=== PATIENT | male | born 1945 | race American Indian/Alaskan Native ===

== ENCOUNTER 2020-09-27 06:09 | Day surgery (SDC) | payer MEDICARE, OTHER ==
--- NOTE | 2020-09-25 10:49 | Anesthesia Consultation ---
Anesthesia Consult and Med Hx Date of service: 09/27/20 - Airway Anesthetic Teeth Evaluation: Chipped ROM Head & Neck: Inadequate Mental/Hyoid Distance: Adequate Mallampati Class: Class IV Intubation Access Assessment: Possibly Difficult - Pre-Operative Health Status ASA Pre-Surgery Classification: ASA3 Proposed Anesthetic Plan: General - Pulmonary Hx Smoking: Yes (STOPPED X 30 YRS) Hx Respiratory Symptoms: No (+2FS) Hx Sleep Apnea: Yes (DX SLEEP APNEA WITH CPAP USE) - Cardiovascular System Hx Hypertension: Yes (X 30 YRS) Hx Coronary Artery Disease: Yes (ECHO [id number] Severe septal LV hypertrophy. EF .87. LVOT obstruction/HCM) Hx Heart Attack/AMI: No (Cath [id number] EF .55 LVH. No significant CAD) Hx Cardia Arrhythmia: Yes (Holter 2018 and 30-day EVM no significant dysrhythmias) - Central Nervous System Hx Psychiatric Problems: No - Gastrointestinal Hx Gastroesophageal Reflux Disease: No - Endocrine Hx Renal Disease: Yes (CKD) Hx Non-Insulin Dependent Diabetes: Yes Hx Thyroid Disease: No - Hematic Hx Anemia: No Hx Sickle Cell Disease: No - Other Systems Hx Obesity: Yes
[~2020-09-27 06:09] MED LIST: LACTATED RINGERS 1,000 ML IV SCH; ceFAZolin/STERILE WATER 2 GM/20 ML SYRINGE IV NR
[2020-09-27] MEDS ORDERED: MIDAZOLAM 2 MG/2 ML INJ IV ONE (06:35)
--- NOTE | 2020-09-27 06:50 | Anesthesia Day of Surgery ---
Anesthesia Day of Surgery - Day of Surgery Patient Examined: Yes Patient H&P Reviewed: Yes Patient is NPO: Yes Beta Blockers: Yes (09/27/20)
[2020-09-27] MEDS ORDERED: propofoL 200 MG/20 ML VIAL IV ONE (07:25)
[2020-09-27] MEDS ORDERED: ONDANSETRON 4 MG/2 ML INJ ONE (07:25)
[2020-09-27] MEDS ORDERED: fentaNYL 100 MCG/2 ML INJ ONE ×2 (07:25→09:59)
[2020-09-27] MEDS ORDERED: LIDOCAINE MPF (2%) 20 MG/1 ML VIAL 5 ML ONE (07:25)
[2020-09-27] MEDS ORDERED: GLYCOPYRROLATE 0.4 MG/2 ML INJ ONE (08:00)
[2020-09-27] MEDS ORDERED: WATER FOR IRRIG STERILE 1,500 ML BOTTLE IR ONE ×2 (08:04)
[2020-09-27] MEDS ORDERED: WATER FOR IRRIG STERILE 2000 ML IR ONE (08:04)
--- NOTE | 2020-09-27 08:48 | Short Stay Summary ---
Short Stay Documentation Date of service: 09/27/20 - History H&P: obtained from office - Allergies and Medications Current Medications: Allergies No Known Allergies Allergy (Verified 09/21/20 10:38) Home Medications Medication Instructions Recorded Confirmed Last Taken Type Amlodipine Besylate/Valsartan 1 each PO DAILY 09/25/20 09/25/20 09/27/20 05:30 History [Amlodipine-Valsartan 10-320 mg] Insulin Glargine,Hum.rec.anlog 30 unit SQ QHS 09/25/20 09/25/20 09/26/20 History [Toujeo Solostar] Insulin Lispro [Humalog 100 25 units SQ BID 09/25/20 09/25/20 09/26/20 History UNITS/ML Kwikpen] Insulin Lispro [Humalog 100 30 units SQ QHS 09/25/20 09/25/20 09/26/20 History UNITS/ML Kwikpen] Metformin HCl [Metformin HCl ER] 500 mg PO BID 09/25/20 09/25/20 09/26/20 History Metoprolol [Lopressor] 100 mg PO DAILY 09/25/20 09/25/20 09/27/20 05:30 History Olmesartan (Nf) [Benicar (Nf)] 40 mg PO QDAY 09/25/20 09/25/20 09/26/20 History Pregabalin [Lyrica] 50 mg PO DAILY 09/25/20 09/25/20 09/26/20 History Simvastatin 80 mg PO QHS 09/25/20 09/25/20 09/26/20 History cloNIDine [Catapres] 0.2 mg PO BID 09/25/20 09/25/20 09/27/20 05:30 History Active Medications Cefazolin Sodium (Cefazolin/Sterile Water 2 Gm/20 Ml Syringe) 2 gm IV PREOP NR Stop: 09/27/20 20:00 Lactated Ringer's (Lactated Ringers) 1,000 mls @ 125 mls/hr IV DIRECT JASPREET Last Admin: 09/27/20 06:40 Dose: 125 mls/hr Documented by: - Brief post op/procedure progress note Date of procedure: 09/27/20 Pre-op diagnosis: bladder tumor Post-op diagnosis: same Procedure: cysto, turbt, tur bx of prostate Anesthesia: GETA Surgeon: YOU PHAN Estimated blood loss: minimal Pathology: list (bladder tumor, prostate bx) Specimen disposition: to lab Condition: stable - Hospital course Hospital course: bactrim, norco,pyridium on chart - Disposition Condition at discharge: Stable Disposition: DC-01 TO HOME OR SELFCARE Short Stay Discharge Plan Follow up with: PRIMARY CARE, [Primary Care Provider] - 7 Days
[2020-09-27] MEDS ORDERED: MANNITOL/SORBITOL SOLUTION 3,000 ML IRRIG.SOLN IR ONE (09:03)
[2020-09-27] MEDS ORDERED: hydrALAZINE 20 MG/1 ML INJ IV ONE ×2 (10:00→11:00)
--- NOTE | 2020-09-27 10:15 | Fluoroscopy Report ---
INTRAOPERATIVE FLUOROSCOPY: RETROGRADE UROGRAPHY INDICATION: BLADDER CANCER. TECHNIQUE: Intraoperative spot images were obtained during the procedure. FINDINGS: Left retrograde urography demonstrates expected opacification of the ureter and renal collecting syst em with probable air bubbles seen at the left UPJ. Please see the procedure report for further detail s. Fluoroscopy Time: 0.1 minutes. Fluoroscopy Images: 3. Signer Name: Arnol Pierre MD Signed: 09/27/2020 10:10 AM Workstation Name: [id number]
--- NOTE | 2020-09-27 10:41 | Post Anesthesia Evaluation ---
- Post Anesthesia Evaluation Patient Participated: Yes Airway Patent: Yes Stable Respiratory Function: Yes Nausea/Vomiting: No Temp > 96.8F: Yes Pain Manageable: Yes Adequeate Hydration: Yes Anesthesia Complications: No Block Receding Appropriately: Not Applicable Patient on Ventilator: No
[2020-09-27] MEDS ORDERED: fentaNYL 100 MCG/2 ML INJ IV ONE (11:00)
[2020-09-27 12:15] VITALS: BP 174/73
--- NOTE | 2020-10-05 10:52 | Operative Report ---
PREOPERATIVE DIAGNOSIS: Bladder tumor. POSTOPERATIVE DIAGNOSIS: Bladder tumor. PROCEDURE: Cystoscopy, transurethral resection of moderate bladder tumor, TUR biopsy of prostate. SURGEON: Harley Ye MD ANESTHESIA: General. ESTIMATED BLOOD LOSS: Minimal. FLUIDS: Crystalloid. COMPLICATIONS: No complications. INDICATIONS: This patient is a 74-year-old gentleman, presented to the office with an episode of gross hematuria. CT of abdomen and pelvis revealed a thickened bladder wall with a nodular area at the base. Office cystoscopy revealed a bladder tumor on the right side. He presents now for endoscopic evaluation. DESCRIPTION OF PROCEDURE: The patient was taken to the operative suite, placed in a supine position. After adequate general anesthesia, placed in a dorsal lithotomy position, prepped and draped in a sterile fashion. Pancystourethroscopy was performed with a 22-Welsh Storz cystoscope, no urethral abnormalities. His prostate displayed some vslj-je-kerkisib trilobar obstruction, obvious tumor on the right side, making it difficult to visualize the right ureteral orifice. Left retrograde pyelogram was obtained with an 8-Welsh [place] catheter and 8 mL of contrast. No filling defects or obstruction. No other tumors could be appreciated. The tumor on the right was papillary in nature. Next, using a 24-Welsh resectoscope and loop with the cutting and coag on 120 and 60, transurethral resection of the bladder tumor was performed, again could not visualize the ureteral orifice. A TUR biopsy of the lateral lobe of the prostate was performed bilaterally. Adequate hemostasis was achieved with the Bugbee. A Guajardo catheter was left indwelling. Rectal exam was benign. The patient was extubated and taken to recovery room. He will go home on Ultram and Bactrim and follow up in the office. JOB# [id number] Rosalind/SHERRI
== END 2020-09-27 06:10 | disposition home or self-care (01) ==
LOC: OR 06:09
PROVIDERS: ATTEND Urology
DX: C67.2 Malignant neoplasm of lateral wall of bladder (principal); C61 Malignant neoplasm of prostate; N32.89 Other specified disorders of bladder; N40.0 Benign prostatic hyperplasia without lower urinary tract symptoms; I42.9 Cardiomyopathy, unspecified; I25.10 Atherosclerotic heart disease of native coronary artery without angina pectoris; E78.00 Pure hypercholesterolemia, unspecified; G47.30 Sleep apnea, unspecified; E66.9 Obesity, unspecified; I12.9 Hypertensive chronic kidney disease with stage 1 through stage 4 chronic kidney disease, or unspecified chronic kidney disease; N18.9 Chronic kidney disease, unspecified; E11.22 Type 2 diabetes mellitus with diabetic chronic kidney disease; Z86.19 Personal history of other infectious and parasitic diseases; Z79.899 Other long term (current) drug therapy; Z79.4 Long term (current) use of insulin; Z87.891 Personal history of nicotine dependence; Z98.41 Cataract extraction status, right eye; Z98.42 Cataract extraction status, left eye; Z68.33 Body mass index [BMI] 33.0-33.9, adult
CPT/HCPCS: 52235; 55700; 74420; 82962; 88305; 88307; 88341; 88342; A4217; J0360; J0690; J2250; J2405; J2704; J3010; J7120; Q9967; U0003

== ENCOUNTER 2021-03-14 08:04 | Day surgery (SDC) | payer MEDICARE, OTHER ==
[2021-03-08 11:12] LABS: Hemoglobin 12.2 gm/dl (11.8-15.2); Mean Corpuscular HGB Conc 35 % (32-34); Mean Corpuscular Volume 91 fl (84-94); Platelet Count 157 K/mm3 (140-440); Red Blood Count 3.85 M/mm3 (3.65-5.03)
[2021-03-08 11:24] LABS: Albumin 3.6 g/dL (3.9-5); Calcium 8.8 mg/dL (8.4-10.2)
[~2021-03-14 08:04] MED LIST changes: +IOHEXOL 300 MG/ML 50ML IV ONE; -LACTATED RINGERS 1,000 ML IV SCH; +WATER FOR IRRIG STERILE 1,500 ML BOTTLE IR ONE; -ceFAZolin/STERILE WATER 2 GM/20 ML SYRINGE IV NR
--- NOTE | 2021-03-14 09:36 | Anesthesia Consultation ---
Anesthesia Consult and Med Hx Date of service: 03/14/21 - Airway Anesthetic Teeth Evaluation: Poor ROM Head & Neck: Adequate Mental/Hyoid Distance: Adequate Mallampati Class: Class II Intubation Access Assessment: Good - Pulmonary Exam CTA: Yes - Cardiac Exam Cardiac Exam: RRR - Pre-Operative Health Status ASA Pre-Surgery Classification: ASA3 Proposed Anesthetic Plan: General - Pulmonary Hx Smoking: Yes (STOPPED X 30 YRS) Hx Respiratory Symptoms: No (+2FS) Hx Sleep Apnea: Yes (DX SLEEP APNEA WITH CPAP USE) - Cardiovascular System Hx Hypertension: Yes (X 30 YRS) Hx Coronary Artery Disease: Yes (ECHO [id number] Severe septal LV hypertrophy. EF .87. LVOT obstruction/HCM) Hx Heart Attack/AMI: No (Cath [id number] EF .55 LVH. No significant CAD) Hx Cardia Arrhythmia: Yes (Holter 2018 and 30-day EVM no significant dysrhythmias) - Central Nervous System Hx Psychiatric Problems: No - Gastrointestinal Hx Gastroesophageal Reflux Disease: No - Endocrine Hx Renal Disease: Yes (CKD) Hx Non-Insulin Dependent Diabetes: Yes Hx Thyroid Disease: No - Hematic Hx Anemia: No Hx Sickle Cell Disease: No - Other Systems Hx Obesity: Yes
--- NOTE | 2021-03-14 09:37 | Anesthesia Day of Surgery ---
Anesthesia Day of Surgery - Day of Surgery Patient Examined: Yes Patient H&P Reviewed: Yes Patient is NPO: Yes Beta Blockers: Yes
[2021-03-14] MEDS ORDERED: ONDANSETRON 4 MG/2 ML INJ IV PRN (09:47)
[2021-03-14] MEDS ORDERED: HYDROmorphone 1 MG/1 ML INJ IV PRN ×2 (09:47→10:00)
[2021-03-14] MEDS ORDERED: LACTATED RINGERS 1,000 ML IV SCH (10:00)
[2021-03-14] MEDS ORDERED: MIDAZOLAM 2 MG/2 ML INJ IV NR (10:00)
[2021-03-14] MEDS ORDERED: ONDANSETRON 4 MG/2 ML INJ ONE (10:21)
[2021-03-14] MEDS ORDERED: LIDOCAINE MPF (2%) 20 MG/1 ML VIAL 5 ML ONE (10:21)
[2021-03-14] MEDS ORDERED: fentaNYL 100 MCG/2 ML INJ ONE (10:22)
[2021-03-14] MEDS ORDERED: propofoL 200 MG/20 ML VIAL IV ONE (10:22)
[2021-03-14] MEDS ORDERED: ceFAZolin/STERILE WATER 2 GM/20 ML SYRINGE IV NR (11:00)
[2021-03-14] MEDS ORDERED: WATER FOR IRRIG STERILE 1,500 ML BOTTLE IR ONE (11:10)
[2021-03-14] MEDS ORDERED: IOHEXOL 300 MG/ML 50ML IV ONE (11:10)
[2021-03-14] MEDS ORDERED: WATER FOR IRRIG STERILE 2000 ML IR ONE (11:10)
--- NOTE | 2021-03-14 11:34 | Short Stay Summary ---
Short Stay Documentation Date of service: 03/14/21 - History H&P: obtained from office - Allergies and Medications Current Medications: Allergies No Known Allergies Allergy (Verified 09/21/20 10:38) Home Medications Medication Instructions Recorded Confirmed Last Taken Type Amlodipine Besylate/Valsartan 1 each PO DAILY 09/25/20 03/14/21 03/13/21 09:00 History [Amlodipine-Valsartan 10-320 mg] Insulin Glargine,Hum.rec.anlog 60 unit SQ QHS 09/25/20 03/14/21 03/13/21 21:00 History [[place] Solostar] Insulin Lispro [Humalog 100 25 units SQ BID 09/25/20 03/14/21 03/13/21 21:00 History UNITS/ML Kwikpen] Metformin HCl [Metformin HCl ER] 500 mg PO BID 09/25/20 03/14/21 03/13/21 21:00 History Metoprolol [Lopressor] 100 mg PO DAILY 09/25/20 03/14/21 03/14/21 05:00 History Pregabalin [Lyrica] 50 mg PO DAILY 09/25/20 03/14/21 03/13/21 21:00 History Simvastatin 80 mg PO QHS 09/25/20 03/14/21 03/13/21 21:00 History Atenolol/Chlorthalidone [Tenoretic 1 tab PO QDAY 03/08/21 03/14/21 03/13/21 09:00 History 50-25] Doxazosin [Cardura] 1 mg PO QHS 03/08/21 03/14/21 03/13/21 21:00 History Memantine Xr [Namenda Xr] 5 mg PO BID 03/08/21 03/14/21 03/13/21 17:00 History cloNIDine-TTS PATCH [Catapres-Tts 1 patch TD Q7D 03/08/21 03/14/21 03/12/21 09:00 History 0.1MG Patch] hydrALAZINE [Apresoline TAB] 100 mg PO BID 03/08/21 03/14/21 03/14/21 05:00 History Active Medications Cefazolin Sodium (Cefazolin/Sterile Water 2 Gm/20 Ml Syringe) 2 gm IV PREOP NR Stop: 03/14/21 15:00 Hydromorphone HCl (Hydromorphone 1 Mg/1 Ml Inj) 0.25 mg IV Q10MIN PRN PRN Reason: Pain, Moderate (4-6) Stop: 03/14/21 23:00 Hydromorphone HCl (Hydromorphone 1 Mg/1 Ml Inj) 0.5 mg IV Q10MIN PRN PRN Reason: Pain , Severe (7-10) Stop: 03/14/21 23:00 Lactated Ringer's (Lactated Ringers) 1,000 mls @ 100 mls/hr IV DIRECT JASPREET Last Admin: 03/14/21 10:35 Dose: 100 mls/hr Documented by: Midazolam HCl (Midazolam 2 Mg/2 Ml Inj) 2 mg IV PREOP NR Stop: 03/14/21 23:59 Ondansetron HCl (Ondansetron 4 Mg/2 Ml Inj) 4 mg IV ONCE PRN PRN Reason: Nausea And Vomiting Stop: 03/14/21 13:00 - Brief post op/procedure progress note Date of procedure: 03/14/21 Pre-op diagnosis: bladder lesion, hx fo bladder tumor Post-op diagnosis: same Procedure: cysto,left rpg, bx bladder x 3----trigone, lateral wall, posteriot wall (all right) Surgeon: YOU PHAN Estimated blood loss: minimal Pathology: list (bladder lesions) - Hospital course Hospital course: bactrim & ultram on chart - Disposition Condition at discharge: Stable Disposition: DC-01 TO HOME OR SELFCARE Short Stay Discharge Plan Follow up with: PRIMARY CARE, [Primary Care Provider] - 7 Days
--- NOTE | 2021-03-14 12:58 | Fluoroscopy Report ---
INTRAOPERATIVE FLUOROSCOPY: RETROGRADE UROGRAPHY INDICATION / CLINICAL INFORMATION: MALIGNANT NEOPLASM OF BLADDER WALL. TECHNIQUE: Intraoperative spot images were obtained during the procedure. FINDINGS: Images show retrograde urography. 12 cc Omnipaque 300 utilized. See operative/procedure note by performing physician for full details. Fluoroscopy Time: 8 seconds. Fluoroscopy Images: 6. Signer Name: Tom Richey MD Signed: 03/14/2021 12:54 PM Workstation Name: [id number]
--- NOTE | 2021-03-14 13:34 | Operative Report ---
DATE OF SURGERY: 03/14/2021 PREOPERATIVE DIAGNOSES: History of bladder tumor, multiple bladder lesions. POSTOPERATIVE DIAGNOSES: History of bladder tumor, multiple bladder lesions. PROCEDURES PERFORMED: Cystoscopy, left retrograde pyelogram, bladder biopsy and fulguration x3, right side (trigone, lateral wall, posterior wall). SURGEON: Harley Ye MD. ANESTHESIA: General ESTIMATED BLOOD LOSS: Minimal. FLUIDS: Crystalloid. COMPLICATIONS: No complications. INDICATIONS: This patient is a 75-year-old gentleman with a history of bladder tumor, underwent transurethral resection in the past as well as mitomycin C instillation x6. Office cystoscopy showed some erythema on the right side. Cytology was positive for abnormal cells. He presents now for further evaluation. DESCRIPTION OF PROCEDURE: The patient was taken to the operative suite, placed in a supine position. After adequate general anesthesia, placed in the dorsal lithotomy position, prepped and draped in a sterile fashion. Pancystourethroscopy was performed with a 22-Cuban Storz cystoscope. No urethral abnormalities. Prostate displayed some mild to moderate trilobar obstruction. Bladder, diffuse trabeculation and erythematous areas on the right side. Left retrograde pyelogram was obtained with an 8-Cuban [place] catheter and 8 mL of contrast. No filling defects or obstruction. Right side, the erythematous areas as well as trabeculation made it difficult to visualize the right ureteral orifice. Biopsy of these lesions at the trigone/base and another at the lateral wall and at the posterior wall and then the base was fulgurated until normal tissue could be appreciated. Bladder was drained. Rectal exam was benign. He was taken to the recovery room. He will go home on Ultram and Bactrim. TID: [id number] RECEIPT: [id number] JACOB/RIGO
[2021-03-14 14:49] VITALS: BP 159/71
== END 2021-03-14 12:25 | disposition home or self-care (01) ==
LOC: OR 08:04
PROVIDERS: ATTEND Urology
DX: N32.89 Other specified disorders of bladder (principal); Z20.822 Contact with and (suspected) exposure to COVID-19; C67.0 Malignant neoplasm of trigone of bladder; C67.2 Malignant neoplasm of lateral wall of bladder; C67.4 Malignant neoplasm of posterior wall of bladder; I42.9 Cardiomyopathy, unspecified; E78.00 Pure hypercholesterolemia, unspecified; I10 Essential (primary) hypertension; G47.30 Sleep apnea, unspecified; E66.9 Obesity, unspecified; I25.10 Atherosclerotic heart disease of native coronary artery without angina pectoris; E11.9 Type 2 diabetes mellitus without complications; Z79.899 Other long term (current) drug therapy; Z79.4 Long term (current) use of insulin; Z87.891 Personal history of nicotine dependence; Z98.41 Cataract extraction status, right eye; Z98.42 Cataract extraction status, left eye; Z68.33 Body mass index [BMI] 33.0-33.9, adult; Z98.890 Other specified postprocedural states
CPT/HCPCS: 36415; 52204; 74420; 80053; 82962; 85027; 88305; A4217; C1758; J0690; J2405; J2704; J3010; J7120; Q9967; U0003; 88341; 88342

== ENCOUNTER 2022-03-13 06:30 | Day surgery (SDC) | payer MEDICARE, OTHER ==
[2022-03-11 12:43] LABS: Hematocrit 33.2 % (35.5-45.6); Hemoglobin 10.7 gm/dl (11.8-15.2); Mean Corpuscular HGB Conc 32 % (32-34); Mean Corpuscular Volume 94 fl (84-94); Platelet Count 191 K/mm3 (140-440); Red Blood Count 3.54 M/mm3 (3.65-5.03); Red Cell Distribution Width 13.7 % (13.2-15.2)
[2022-03-11 12:54] LABS: Albumin 3.4 g/dL (3.9-5); Calcium 8.6 mg/dL (8.4-10.2)
--- NOTE | 2022-03-11 17:55 | Anesthesia Consultation ---
Anesthesia Consult and Med Hx Date of service: 03/11/22 - Airway Anesthetic Teeth Evaluation: Chipped (Missing) ROM Head & Neck: Adequate Mental/Hyoid Distance: Adequate Mallampati Class: Class IV Intubation Access Assessment: Possibly Difficult - Pre-Operative Health Status ASA Pre-Surgery Classification: ASA3 Proposed Anesthetic Plan: General - Pulmonary Hx Smoking: Yes (Former) Hx Respiratory Symptoms: No Hx Sleep Apnea: Yes (CPAP) - Cardiovascular System Hx Hypertension: Yes (X 30 YRS) Hx Coronary Artery Disease: Yes (ECHO [id number] Severe septal LV hypertrophy. EF .87. LVOT obstruction/HCM) Hx Heart Attack/AMI: No (Cath [id number] EF .55 LVH. No significant CAD) Hx Cardia Arrhythmia: Yes (Holter 2018 and 30-day EVM no significant dysrhythmias) - Central Nervous System Hx Neuromuscular Disorder: Yes (Neuropathy) Hx Psychiatric Problems: No - Gastrointestinal Hx Gastroesophageal Reflux Disease: No - Endocrine Hx Renal Disease: Yes (CKD; Cr-3.5) Hx Non-Insulin Dependent Diabetes: Yes Hx Thyroid Disease: No - Other Systems Hx Cancer: Yes - Additional Comments Anesthesia Medical History Comments: Has been here twice in 2020. Cardiac records reviewed-had ablation
[~2022-03-13 06:30] MED LIST changes: -IOHEXOL 300 MG/ML 50ML IV ONE; +LACTATED RINGERS 1,000 ML IV SCH; -WATER FOR IRRIG STERILE 1,500 ML BOTTLE IR ONE
--- NOTE | 2022-03-13 08:32 | Anesthesia Day of Surgery ---
Anesthesia Day of Surgery - Day of Surgery Patient Examined: Yes Patient H&P Reviewed: Yes Patient is NPO: Yes
[2022-03-13] MEDS ORDERED: HYDROmorphone 0.5 MG/0.5 ML INJ IV PRN ×2 (09:00→09:30)
[2022-03-13] MEDS ORDERED: HYDROmorphone 1 MG/1 ML INJ ONE (09:08)
[2022-03-13] MEDS ORDERED: propofoL 200 MG/20 ML VIAL IV ONE (09:08)
[2022-03-13] MEDS ORDERED: ONDANSETRON 4 MG/2 ML INJ IV PRN (09:30)
[2022-03-13] MEDS ORDERED: ceFAZolin/STERILE WATER 2 GM/20 ML SYRINGE IV NR (10:00)
[2022-03-13] MEDS ORDERED: WATER FOR IRRIG STERILE 2000 ML IR ONE (10:36)
[2022-03-13] MEDS ORDERED: ONDANSETRON 4 MG/2 ML INJ ONE (10:38)
--- NOTE | 2022-03-13 10:43 | Short Stay Summary ---
Short Stay Documentation Date of service: 03/13/22 - History H&P: obtained from office - Allergies and Medications Current Medications: Allergies No Known Allergies Allergy (Verified 03/08/22 14:22) Home Medications Medication Instructions Recorded Confirmed Last Taken Type Insulin Glargine,Hum.rec.anlog 60 unit SQ QHS 09/25/20 03/11/22 03/13/21 21:00 History [[place] Solostar] Insulin Lispro [Humalog 100 10 units SQ TID 09/25/20 03/11/22 03/13/21 21:00 History UNITS/ML Kwikpen] Simvastatin 80 mg PO QHS 09/25/20 03/11/22 03/13/21 21:00 History Doxazosin [Cardura] 1 mg PO QHS 03/08/21 03/11/22 03/13/21 21:00 History Memantine Xr [Namenda Xr] 10 mg PO BID 03/08/21 03/11/22 03/13/21 17:00 History cloNIDine-TTS PATCH [Catapres-Tts 0.2 mg TD QWEEK 03/08/21 03/11/22 03/12/21 09:00 History 0.1MG Patch] hydrALAZINE [Apresoline TAB] 100 mg PO TID 03/08/21 03/11/22 03/14/21 05:00 History Famotidine [Acid-Pep] 20 mg PO BID 03/11/22 03/11/22 Unknown History Furosemide [Lasix TAB] 40 mg PO QDAY 03/11/22 03/11/22 Unknown History NIFEdipine [Nifedipine ER] 60 mg PO DAILY 03/11/22 03/11/22 Unknown History Nebivolol HCl [Bystolic] 5 mg PO DAILY 03/11/22 03/11/22 Unknown History Pantoprazole [Protonix] 40 mg PO QDAY 03/11/22 03/11/22 Unknown History Phenazopyridine [Pyridium] 200 mg PO TID 03/11/22 03/11/22 Unknown History Pregabalin [Lyrica] 50 mg PO DAILY 03/11/22 03/11/22 Unknown History cloNIDine [Catapres] 0.2 mg PO BID 03/11/22 03/11/22 Unknown History Active Medications Cefazolin Sodium (Cefazolin/Sterile Water 2 Gm/20 Ml Syringe) 2 gm IV PREOP NR Stop: 03/13/22 20:00 Hydromorphone HCl (Hydromorphone 0.5 Mg/0.5 Ml Inj) 0.25 mg IV Q10MIN PRN PRN Reason: Pain, Moderate (4-6) Stop: 03/13/22 18:00 Hydromorphone HCl (Hydromorphone 0.5 Mg/0.5 Ml Inj) 0.5 mg IV Q10MIN PRN PRN Reason: Pain , Severe (7-10) Stop: 03/13/22 18:00 Lactated Ringer's (Lactated Ringers) 1,000 mls @ 125 mls/hr IV DIRECT JASPREET Last Admin: 03/13/22 08:45 Dose: 125 mls/hr Ondansetron HCl (Ondansetron 4 Mg/2 Ml Inj) 4 mg IV ONCE PRN PRN Reason: Nausea And Vomiting Stop: 03/13/22 18:00 - Brief post op/procedure progress note Date of procedure: 03/13/22 Pre-op diagnosis: recurrent bladder tumor Post-op diagnosis: same Procedure: cysto, left rpg, TURBT---rt side Anesthesia: GETA Surgeon: YOU PHAN Pathology: list (bladder tumor) Specimen disposition: to lab Condition: stable - Hospital course Hospital course: oswaldod & indu on chart - Disposition Condition at discharge: Stable Disposition: 01 HOME / SELF CARE / HOMELESS Short Stay Discharge Plan Follow up with: DR ELIANA [Other] - 7 Days
--- NOTE | 2022-03-13 11:27 | Operative Report ---
DATE OF SURGERY: 03/13/2022 PREOPERATIVE DIAGNOSIS: Recurrent bladder tumor. POSTOPERATIVE DIAGNOSIS: Recurrent bladder tumor. PROCEDURE PERFORMED: Cystoscopy, left retrograde pyelogram, transurethral resection of moderate bladder tumor. SURGEON: Harley Ye MD ANESTHESIA: General. ESTIMATED BLOOD LOSS: Minimal. FLUIDS: Crystalloid. COMPLICATIONS: No complications. INDICATIONS: This 76-year-old male with history of recurrent tumor, underwent previous TURP BT with intravesical therapy, has a history of smoking in the past. Surveillance cystoscopy revealed recurrent tumor. He presents now for intervention. DESCRIPTION OF PROCEDURE: The patient was taken to the operative suite, placed in a supine position. After adequate general anesthesia, placed in the dorsal lithotomy position, prepped and draped in a sterile fashion. Pancystourethroscopy was performed with a 22-Armenian Storz cystoscope, no urethral abnormalities to his prostate. Minimally obstructing obvious bladder tumor at the bladder neck on the right side. He has some mild trabeculation. Left ureteral orifice in normal position. Left retrograde pyelogram was obtained with an 8-Armenian [place] catheter and 8 mL of contrast. No filling defects or obstruction. The right ureteral orifice could not be appreciated due to edema from the tumor. Next, using a yellow loop 24-Armenian resectoscope with cutting and coag 120 and 60 transurethral resection of the bladder tumor was performed. This tumor appeared a little more sessile versus papillary in the past. Tumor was removed. The patient tolerated the procedure well. Bladder was drained. He was extubated. Rectal exam was benign. He was taken to the recovery room. He will go home on Lolis Fink. TID: [id number] RECEIPT: [id number] JACOB/KIRK
[2022-03-13 12:40] VITALS: BP 116/53
--- NOTE | 2022-03-15 07:39 | Fluoroscopy Report ---
FLUOROSCOPY RETROGRADE UROGRAPHY INDICATION: RECURRENT BLADDER TUMOR. COMPARISON: 03/14/2021 IMPRESSION: 0.1 minutes of fluoroscopy time was provided by radiology during retrograde urography by urology. 3 fluoroscopic images are presented demonstrating contrast agent in the left collecting sys tem. No obvious obstructing lesion. Please correlate with the procedural report by urology as needed. Signer Name: Robby Ruffin Jr, MD Signed: 03/15/2022 7:35 AM Workstation Name: [id number]
== END 2022-03-13 12:13 | disposition home or self-care (01) ==
LOC: OR 06:30
PROVIDERS: ATTEND Urology
DX: C67.5 Malignant neoplasm of bladder neck (principal); I25.10 Atherosclerotic heart disease of native coronary artery without angina pectoris; G47.30 Sleep apnea, unspecified; I12.9 Hypertensive chronic kidney disease with stage 1 through stage 4 chronic kidney disease, or unspecified chronic kidney disease; E11.22 Type 2 diabetes mellitus with diabetic chronic kidney disease; N18.30 Chronic kidney disease, stage 3 unspecified; E11.42 Type 2 diabetes mellitus with diabetic polyneuropathy; Z98.890 Other specified postprocedural states; Z20.822 Contact with and (suspected) exposure to COVID-19; Z79.899 Other long term (current) drug therapy; Z79.4 Long term (current) use of insulin; Z98.42 Cataract extraction status, left eye; Z98.41 Cataract extraction status, right eye; Z87.891 Personal history of nicotine dependence
CPT/HCPCS: 36415; 52235; 74420; 80053; 82962; 85027; 88305; J0690; J1170; J2405; J2704; J7120; Q9967; U0003

== ENCOUNTER 2022-05-08 13:55 | Outpatient (CLI) | payer MEDICARE, OTHER | END 2022-05-08 13:56 | disposition home or self-care (01) | LOC: LABHHL 13:55 | PROVIDERS: ATTEND Internal Medicine Hematology & Oncology | DX: C67.9 Malignant neoplasm of bladder, unspecified (principal) | CPT/HCPCS: 36415 ==